=== PATIENT | female | born 1990 | race Two or more races ===

== ENCOUNTER 2017-05-29 08:55 | Emergency (ER) | payer SELFPAY ==
[~2017-05-29] VITALS: Ht 157.5 cm; Wt 54.4 kg
--- NOTE | 2017-05-29 09:23 | NUR ---
Dr Wisdom at the bedside for MSE.
[2017-05-29] MEDS ORDERED: FAMOTIDINE 20 MG TABLET ONE (09:45)
[2017-05-29] MEDS ORDERED: EPINEPHRINE 1 MG/1 ML AMP SQ ONE (09:45)
[2017-05-29] MEDS ORDERED: predniSONE 50 MG TABLET ONE (09:45)
[2017-05-29] MEDS ORDERED: predniSONE 10 MG TABLET ONE (09:45)
[2017-05-29] MEDS ORDERED: FAMOTIDINE 20 MG TABLET PO ONE (09:45)
[2017-05-29] MEDS ORDERED: EPINEPHRINE 1 MG/1 ML AMP ONE (09:45)
[2017-05-29] MEDS ORDERED: predniSONE 10 MG TABLET PO ONE (09:45)
--- NOTE | 2017-05-29 10:14 | NUR ---
Patient discharged to home in stable conditon. Written and verbal after care instructions given. Patient verbalizes understanding of instructions.
[2017-05-29 10:15] VITALS: BP 120/67
== END 2017-05-29 10:16 | disposition home or self-care (01) ==
LOC: ER 08:57
DX: T50.905A Adverse effect of unspecified drugs, medicaments and biological substances, initial encounter (principal); Y92.89 Other specified places as the place of occurrence of the external cause; F11.10 Opioid abuse, uncomplicated
CPT/HCPCS: A4663; J0171; J7512

== ENCOUNTER 2017-10-18 00:07 | Emergency (ER) | payer MEDICAID ==
[~2017-10-18] VITALS: Ht 157.5 cm; Wt 54.4 kg
--- NOTE | 2017-10-18 00:20 | NUR ---
DR BOBBY DURHAM MD AT BEDSIDE FOR MSE.
[2017-10-18] MEDS ORDERED: KETOROLAC TROMETHAMINE 30 MG INJ IM ONE (00:30)
[2017-10-18] MEDS ORDERED: KETOROLAC TROMETHAMINE 30 MG INJ ONE (00:32)
--- NOTE | 2017-10-18 01:36 | NUR ---
Patient discharged to home in stable conditon. Written and verbal after care instructions given. Patient verbalizes understanding of instructions.
[2017-10-18 02:37] VITALS: BP 116/76
== END 2017-10-18 02:38 | disposition home or self-care (01) ==
LOC: ER 00:09
DX: M54.12 Radiculopathy, cervical region (principal); E03.9 Hypothyroidism, unspecified; F17.200 Nicotine dependence, unspecified, uncomplicated; F11.10 Opioid abuse, uncomplicated
CPT/HCPCS: 96372; 99283; A4663; J1885

== ENCOUNTER 2017-12-17 16:51 | Emergency (ER) | payer MEDICAID, OTHER ==
[~2017-12-17] VITALS: Ht 157.5 cm; Wt 55.3 kg
[2017-12-17] MEDS ORDERED: HYDROCODONE/APAP 10-325 MG TABLET ONE (17:28)
[2017-12-17] MEDS: HYDROCODONE/APAP 10-325 MG TABLET PO ONE (17:29)
--- NOTE | 2017-12-17 18:10 | NUR ---
PATIENT ALERT, ORIENTED AND ABLE TO FOLLOW DIRECTIONS. RESPIRATIONS EVEN AND UNLABORED. PATIENT REPORTS HEROIN USE TODAY. PATIENT STATES THAT SHE GOT UP FROM THE COUCH AND BLACKED OUT AND HIT HER HEAD 2 HOUR AGO. PATIENT STATES THAT SHE HAS PAIN AND NUMBNESS IN BOTHER HER ARMS AND EXPECIALLY IN HER LEFT AXCILLARY AND RIGHT THUMB. PATIENT HAS A SMALL BUMB ON THE BACK OF HER HEAD NO LACERATION PRESENT. PATIENT DENIES ANY N/V OR NEW DROWSEYNESS.
[2017-12-17] MEDS ORDERED: KETOROLAC TROMETHAMINE 30 MG INJ ONE (18:29)
[2017-12-17] MEDS: KETOROLAC TROMETHAMINE 60 MG INJ IM ONE (18:30)
[2017-12-17 19:07] VITALS: BP 108/58
== END 2017-12-17 19:08 | disposition home or self-care (01) ==
LOC: ER 16:51
DX: M54.12 Radiculopathy, cervical region (principal); E03.9 Hypothyroidism, unspecified; F17.200 Nicotine dependence, unspecified, uncomplicated; F11.10 Opioid abuse, uncomplicated; J45.909 Unspecified asthma, uncomplicated
CPT/HCPCS: 70450; 72125; 96372; 99284; J1885; A4663

== ENCOUNTER 2018-04-01 22:07 | Emergency (ER) | payer OTHER ==
[~2018-04-01] VITALS: Ht 157.5 cm; Wt 52.2 kg
--- NOTE | 2018-04-01 22:19 | NUR ---
Pt ambulated to ER with c/o pain upon urination x 1 week & a lump on her left hand. Urine sample collected, sent to lab. No acute distress noted.
[2018-04-01 22:35] LABS: *BILIRUBIN,URIN NEGATIVE (NEGATIVE); *BLOOD, URINE NEGATIVE (NEGATIVE); *CLARITY,URINE CLEAR (CLEAR); *COLOR,URINE YELLOW (YELLOW); *KETONES,URINE NEGATIVE (NEGATIVE); LEUKOCYTE ESTERASE ,URINE NEGATIVE (NEGATIVE); NITRITE, URINE NEGATIVE (NEGATIVE); PH,URINE >=9.0 (5.0-8.0); UGLUCOSE NEGATIVE (NEGATIVE)
[2018-04-01 22:42] LABS: RBC,URINE 0-3 /HPF (0-3)
[2018-04-01 22:43] LABS: *URINE HCG, QUAL NEGATIVE (NEGATIVE); BACTERIA,URINE MODERATE /HPF (NONE SEEN); SQUAMOUS EPITHELIAL CELL,UR FEW /HPF (NONE SEEN); URINE AMORPHOUS PHOSPHATES MODERATE /HPF
[2018-04-01] MEDS ORDERED: ALBUTEROL SULFATE 2.5 MG/3 ML NEBU NEB ONE (22:45)
[2018-04-01] MEDS ORDERED: ALBUTEROL SULFATE 2.5 MG/3 ML NEBU ONE (22:54)
--- NOTE | 2018-04-01 23:16 | NUR ---
Patient discharged to home in stable conditon. Written and verbal after care instructions given. Patient verbalizes understanding of instructions.
[2018-04-01 23:19] VITALS: BP 116/62
== END 2018-04-01 23:20 | disposition home or self-care (01) ==
LOC: ER 22:09
DX: R30.0 Dysuria (principal); J20.9 Acute bronchitis, unspecified; M67.442 Ganglion, left hand; F17.290 Nicotine dependence, other tobacco product, uncomplicated; F11.10 Opioid abuse, uncomplicated; E03.9 Hypothyroidism, unspecified
CPT/HCPCS: 84703; 87077; 87086; A4663

== ENCOUNTER 2018-06-12 22:46 | Emergency (ER) | payer OTHER ==
[~2018-06-12] VITALS: Ht 157.5 cm; Wt 53.5 kg
[2018-06-12] MEDS ORDERED: TDAP DIPH,PERTUSS,TET VAC/PF 0.5 ML DISP.SYRIN IM ONE ×2 (23:07→23:15)
--- NOTE | 2018-06-12 23:15 | NUR ---
Patient discharged to home in stable conditon. Written and verbal after care instructions given. Patient verbalizes understanding of instructions.
== END 2018-06-12 23:16 | disposition home or self-care (01) ==
LOC: ER 22:48
DX: Z00.00 Encounter for general adult medical examination without abnormal findings (principal); R22.30 Localized swelling, mass and lump, unspecified upper limb; E03.9 Hypothyroidism, unspecified; F11.10 Opioid abuse, uncomplicated; F17.290 Nicotine dependence, other tobacco product, uncomplicated; Z71.6 Tobacco abuse counseling
CPT/HCPCS: 90715; A4663

== ENCOUNTER 2018-08-19 23:47 | Emergency (ER) | payer OTHER ==
[~2018-08-19] VITALS: Ht 157.5 cm; Wt 54.4 kg
--- NOTE | 2018-08-20 00:18 | NUR ---
Dr. Navarrete at bedside for MSE.
--- NOTE | 2018-08-20 00:27 | NUR ---
Patient discharged to home in stable conditon. Written and verbal after care instructions given. Patient verbalizes understanding of instructions. Pt ambulated out of ER with steady gait, no acute signs of distress, VSS, all belongings taken.
[2018-08-20 00:28] VITALS: BP 103/59
== END 2018-08-20 00:28 | disposition home or self-care (01) ==
LOC: ER 23:48
DX: L03.115 Cellulitis of right lower limb (principal); F17.200 Nicotine dependence, unspecified, uncomplicated; E03.9 Hypothyroidism, unspecified; F11.10 Opioid abuse, uncomplicated
CPT/HCPCS: A4663